=== PATIENT | female | born 2000 | race Hispanic/Latino ===

== ENCOUNTER 2022-06-25 10:27 | Emergency (ER) | payer OTHER, SELFPAY ==
[2022-06-25 11:53] LABS: Anion Gap 12 mmol/L (10-20); BUN (Urea Nitrogen) 11 mg/dL (7.0-18.7); Calc. Creatinine Clearance 0 mL/min (70-130); Calcium 9.4 mg/dL (7.8-10.44); Carbon Dioxide 25 mmol/L (22-29); Chloride 106 mmol/L (98-107); Estimated GFR 105; Glucose 96 mg/dL (70-105); Magnesium 1.8 mg/dL (1.7-2.2); Potassium 3.8 mmol/L (3.5-5.1); Sodium 139 mmol/L (136-145)
== END 2022-06-25 12:40 | disposition home or self-care (01) ==
LOC: NAV ERS 10:27
DX: R20.2 Paresthesia of skin (principal)
CPT/HCPCS: 80048; 83735; 99284

== ENCOUNTER 2024-04-11 14:43 | Emergency (ER) | payer OTHER, SELFPAY ==
[2024-04-11] MEDS ORDERED: diphenhydrAMINE 50 MG/ML VIAL ONE (14:52)
[2024-04-11] MEDS ORDERED: methylPREDNISolone Sod Succ/PF 125 MG/2 ML VIAL ONE (14:52)
== END 2024-04-11 16:04 | disposition home or self-care (01) ==
LOC: NAV ERS 14:43
DX: T78.40XA Allergy, unspecified, initial encounter (principal)
CPT/HCPCS: 96374; 96375; J1200; J2919

== ENCOUNTER 2025-04-04 18:18 | Emergency (ER) | payer OTHER, SELFPAY ==
[2025-04-04] MEDS ORDERED: Ibuprofen 200 MG TAB ONE (19:36)
[2025-04-04 19:39] LABS: #Basophils 0.0 thou/uL (0.0-0.2); #Eosinophils 0.0 thou/uL (0.0-0.7); #Lymphocytes 1.0 thou/uL (1.20-3.40); #Monocytes 0.6 thou/uL (0.11-0.59); #Neutrophils 3.4 thou/uL (1.40-6.50); %Basophils 0.5 % (0.0-1.0); %Eosinophils 0.9 % (0.0-10.0); %Lymphocytes 19.0 % (21.0-51.0); %Monocytes 12.3 % (0.0-10.0); %Neutrophils 67.3 % (42.0-75.0); Glucose, Urine (Dipstick) Negative (Negative); Hematocrit 35.8 % (36.0-47.0); Hemoglobin 12.6 g/dL (12.0-16.0); Leukocyte Negative (Negative); Mean Corpuscular Hemoglobin 28.6 pg (27.0-31.0); Mean Corpuscular Volume 81.2 fl (78.0-98.0); Platelet Count 191 10x3/uL (130-400); Protein, Urine (Dipstick) Negative (Neg-Trace); Red Blood Cell (RBC) Count 4.41 mill/uL (4.20-5.40); Specific Gravity, Urine 1.010 (1.005-1.030); White Blood Cell (WBC) Count 5.1 10x3/uL (4.8-10.8)
[2025-04-04 19:44] LABS: Pregnancy Test - Urine (BHCG) Negative (Negative); Pregu Control Background? CLEAR/WHITE (CLR/WHITE); Pregu Control Bar Appear? YES (CONTROL BAR)
[2025-04-04 19:46] LABS: Cocaine Metabolite Screen Negative (Negative); THC/Cannabinoid Screen Negative (Negative); Tricyclic Screen Negative (Negative)
[2025-04-04 19:53] LABS: ALT (SGPT) 27 U/L (Less than 34); AST (SGOT) 38 U/L (11-34); Albumin 4.6 g/dL (3.1-4.5); Alkaline Phosphatase 70 U/L (40-110); Anion Gap 17 mmol/L (10-20); BUN (Urea Nitrogen) 10 mg/dL (7.0-18.7); Bilirubin, Total 0.3 mg/dL (0.3-1.2); Calc. Creatinine Clearance 0 mL/min (70-130); Calcium 9.0 mg/dL (7.8-10.44); Carbon Dioxide 23 mmol/L (22-29); Chloride 103 mmol/L (98-107); Globulin 3.8 g/dL (2.4-3.5); Glucose 113 mg/dL (70-105); Potassium 3.5 mmol/L (3.5-5.1); Sodium 139 mmol/L (136-145)
[2025-04-04 20:00] LABS: Bacteria/HPF Rare-Few HPF (None Seen); CAUTI Indications for Culture Fever or rigors; RBC/HPF 0-3 HPF (0-3); WBC/HPF 0-3 HPF (0-3)
[2025-04-04 20:01] LABS: Urine Culture Reflex No No
== END 2025-04-04 21:23 | disposition home or self-care (01) ==
LOC: NAV ERS 18:18
DX: B34.9 Viral infection, unspecified (principal); K62.89 Other specified diseases of anus and rectum
CPT/HCPCS: 80053; 80306; 81001; 81025; 85025; 87426; 99284; J7030